=== PATIENT | male | born 1995 | race Caucasian/White ===

== ENCOUNTER 2023-10-07 | Emergency (ER) | payer MEDICAID ==
[2023-10-07 00:36] LABS: BASOPHILS ABSOLUTE AUTO 0.04 K/uL (0.00-0.10); BASOPHILS PERCENT AUTO 0.3 % (0.1-1.3); EOSINOPHILS PERCENT AUTO 0.2 % (0.0-5.4); HEMATOCRIT 44.8 % (38.4-49.7); HEMOGLOBIN 16.5 g/dL (12.9-16.9); IMMATURE GRAN ABSOLUTE AUTO 0.04 K/uL (0.00-0.23); IMMATURE GRAN PERCENT AUTO 0.3 % (0.0-0.7); LYMPHOCYTES ABSOLUTE AUTO 2.37 K/uL (0.8-3.3); LYMPHOCYTES PERCENT AUTO 20.3 % (11.4-47.7); MEAN CORPUSCULAR HEMOGLOBIN 32.5 pg (31.6-35.5); MEAN CORPUSCULAR HGB CONC 36.8 g/dL (31.6-35.5); MEAN CORPUSCULAR VOLUME 88.4 fL (81.4-99.0); MONOCYTES ABSOLUTE AUTO 1.11 K/uL (0.20-0.90); MONOCYTES PERCENT AUTO 9.5 % (3.3-12.6); NEUTROPHILS PERCENT AUTO 69.4 % (40.0-78.1); PLATELET COUNT,PLT 202 K/uL (130-375); RED BLOOD CELL COUNT 5.07 M/uL (4.14-5.76); WHITE BLOOD CELL COUNT,WBC 11.7 K/uL (3.2-11.0)
[2023-10-07] MEDS: droPERidol 5 MG/2 ML SDV IVPUSH ONE (00:37)
[2023-10-07 00:39] LABS: EOSINOPHILS ABSOLUTE AUTO 0.02 K/uL (0.00-0.40)
[2023-10-07 00:52] LABS: A/G RATIO 1.3 (1.2-2.2); ALANINE AMINOTRANSFERASE,ALT 81 U/L (12-78); ALBUMIN 4.2 g/dL (3.4-5.0); ALKALINE PHOSPHATASE 92 U/L (46-116); ASPARTATE AMNIOTRANSFERASE,AST 26 U/L (15-37); BILIRUBIN TOTAL 0.7 mg/dL (0.2-1.0); BLOOD UREA NITROGEN,BUN 18 mg/dL (7-18); CALCIUM 9.1 mg/dL (8.5-10.1); CARBON DIOXIDE,CO2 24 mmol/L (21-32); CHLORIDE,CL 100 mmol/L (100-108); EST CRCL DRUG DOSING (CG) 121.79 mL/min; ESTIMATED GFR 106 mL/min (>60); GLUCOSE RANDOM 105 mg/dL (74-106); POTASSIUM,K 3.5 mmol/L (3.6-5.2); PROTEIN TOTAL,TP 7.5 g/dL (6.4-8.2); SODIUM,NA 133 mmol/L (140-148)
[2023-10-07 00:55] LABS: ANION GAP 12.5 mmol/L (5.0-14.0)
[2023-10-07] MEDS: Ketorolac 30 MG/ML SDV IVPUSH ONE (01:07)
[2023-10-07 01:21] LABS: LYME AB IgG Negative (Negative)
[2023-10-07 01:23] LABS: LYME AB IgM Negative (Negative)
== END 2023-10-07 01:36 | disposition home or self-care (01) ==
LOC: JP.ED
DX: R51.9 Headache, unspecified (principal); F17.210 Nicotine dependence, cigarettes, uncomplicated; Z88.8 Allergy status to other drugs, medicaments and biological substances; Z91.048 Other nonmedicinal substance allergy status
CPT/HCPCS: 36415; 80053; 85025; 86140; 86618; 96374; 96375; 99284; J1790; J1885